=== PATIENT | female | born 1975 | race Hispanic/Latino ===

== ENCOUNTER 2019-05-26 17:40 | Emergency (ER) | payer SELFPAY ==
--- NOTE | 2019-05-26 18:07 | Event Note ---
ED Screening Note Date of service: 05/26/19 Time: 18:05 ED Screening Note: 44 y/o female comes in for rash recently being treated for impetigo. Completed antibiotic as prescribed. Rash had improved now has returned. This initial assessment/diagnostic orders/clinical plan/treatment(s) is/are ruff bject to change based on patients health status, clinical progression and re- assessment by fellow clinical providers in the ED. Further treatment and workup at subsequent clinical providers discretion. Patient/guardian urged not to elope from the ED as their condition may be serious if not clinically assessed and managed. Initial orders include:
--- NOTE | 2019-05-26 21:23 | Emergency Department Report ---
ED Rash HPI - HPI Chief Complaint: Skin Rash Stated Complaint: EYES SWELLING/STOMACH PAIN Time Seen by Provider: 05/26/19 21:02 Duration: Today Location: Head, Upper Extremities, Lower Extremities Suspected Cause: Medication Rash Symptoms: Yes Itching, No Facial Swelling, No Tongue/Oral Swelling, No Breathing Difficulties, No Wheezing/Dyspnea, No Malaise, No Myalgias Severity: mild Other History: 44-year-old female recently diagnosed with impetigo and eczema products for symptom improvement in her symptoms. Since stopping antibodies. She didn't have a reemergence of the rash to hands, chest, face rash is pruritic, red. She reports some previous blistering which was ruthless ruptured with nail trauma. ED Review of Systems ROS: Stated complaint: EYES SWELLING/STOMACH PAIN Other details as noted in HPI Comment: All other systems reviewed and negative ED Past Medical Hx - Social History Smoking Status: Current Every Day Smoker Substance Use Type: None - Medications Home Medications: Home Medications Medication Instructions Recorded Confirmed Last Taken Type Mometasone Furoate [Elocon] 45 gm TP BID #1 cream..g. 05/26/19 Unknown Rx Mupirocin [Bactroban 2%] 1 applic TP TID #30 gm 05/26/19 Unknown Rx Sulfamethoxazole/Trimethoprim 1 each PO BID #20 tablet 05/26/19 Unknown Rx [Bactrim Ds] hydrOXYzine HCL [Atarax] 25 mg PO Q6HR PRN #20 tablet 05/26/19 Unknown Rx predniSONE [Deltasone] 50 mg PO QDAY #5 tab 05/26/19 Unknown Rx Rash Exam - Exam General: Vital signs noted. No distress. Alert and acting appropriately. HEENT: No Periorbital Edema, No Conjuctival Injection, No Chemosis, No Perioral Edema, No Tongue Edema, No Uvular Edema, No Compromised Airway, No Drooling Lungs: Yes Good Air Exchange (Normal Breath Sounds), No Wheezes, No Ronchi, No Stridor, No Cough, No Labored Respirations, No Retractions, No Use of Accessory Muscles, No Other Abnormal Lung Sounds Heart: Yes Regular, No Murmur Skin: Yes Urticarial Rash, Yes Erythema, Yes Other (assessment erythematous papular rash located to the hands, chest), No Weeping, No Tenderness Other: Positive: Abdomen Normal, Neurologic Normal, Musculoskeletal Normal ED Course Vital Signs 05/26/19 18:05 Temperature 98.3 F Pulse Rate 102 H Respiratory 16 Rate Blood Pressure 131/83 O2 Sat by Pulse 98 Oximetry ED Medical Decision Making - Medical Decision Making Cor 4-year-old female with a pruritic papular rash involving to her torso small area of a recent diagnosis impetigo. The rash does have significant amount of nail trauma, but there are some local hives found to some of the sinuses well. No wheezing, no lip swelling, cellulitis, lymphangitis or lymphadenopathy noted Critical care attestation.: If time is entered above; I have spent that time in minutes in the direct care of this critically ill patient, excluding procedure time. ED Disposition Clinical Impression: Rash Disposition: DC-01 TO HOME OR SELFCARE Is pt being admited?: No Does the pt Need Aspirin: No Condition: Stable Instructions: Acute Rash (ED) Referrals: JOY MAHARAJ MD [Primary Care Provider] - 3-5 Days
[2019-05-26] MEDS ORDERED: DELTASONE PO STA (21:31)
[2019-05-26] MEDS ORDERED: PEPCID PO STA (21:31)
[2019-05-26] MEDS ORDERED: BENADRYL PO STA (21:31)
--- NOTE | 2019-05-26 21:33 | Emergency Department Report ---
Blank Doc - Documentation Documentation: Upon Ms. london is discharged nursing advised that she requested some medication to be given before being discharged home. She really wants some medication to address the pruritus. There is no wheezing or angioedema. Patient is stable
[2019-05-26 22:01] VITALS: BP 146/52
== END 2019-05-26 21:59 | disposition home or self-care (01) ==
LOC: ED 17:40
DX: R21 Rash and other nonspecific skin eruption (principal); F17.200 Nicotine dependence, unspecified, uncomplicated; Z79.899 Other long term (current) drug therapy
CPT/HCPCS: 99282; J7512